=== PATIENT | male | born 1985 | race Caucasian/White ===

== ENCOUNTER → 2020-12-27 | Outpatient (CLI) | payer OTHER | LOC: KOH-I 11:40 | DX: M54.2 Cervicalgia (principal); M54.5 Low back pain; M25.512 Pain in left shoulder | CPT/HCPCS: 71046; 72040; 72070; 72100; 73030 ==

== ENCOUNTER → 2021-05-14 | Outpatient (CLI) | payer OTHER | LOC: KOH-I 05-13 08:30 | DX: S39.92XD Unspecified injury of lower back, subsequent encounter (principal); M50.30 Other cervical disc degeneration, unspecified cervical region; M51.36 Other intervertebral disc degeneration, lumbar region | CPT/HCPCS: 72125; 72131 ==

== ENCOUNTER 2021-06-23 13:23 | Emergency (ER) | payer OTHER ==
[2021-06-23 14:03] LABS: HEMOGLOBIN 13.3 gm/dl (14.0-17.5); RED BLOOD COUNT 4.37 M/UL (4.20-5.50); WHITE BLOOD COUNT 4.6 K/UL (4.5-11.0)
[2021-06-23 14:21] LABS: BUN/CREATININE RATIO 20 (0-10)
[2021-06-23] MEDS ORDERED: CITRATE OF MAG296 ML PO (16:24)
[2021-06-23] MEDS ORDERED: ANUSOL-HC CREAM30 GM PR (16:24)
== END 2021-06-23 15:34 | disposition home or self-care (01) ==
LOC: ER1 13:23
PROVIDERS: Physician Assistant
DX: K59.00 Constipation, unspecified (principal); Z90.49 Acquired absence of other specified parts of digestive tract
CPT/HCPCS: 80053; 81001; 83690; 85025; 99284

== ENCOUNTER 2021-12-27 00:32 | Emergency (ER) | payer OTHER ==
[~2021-12-27 00:32] MED LIST: ANUSOL-HC CREAM30 GM PR; CITRATE OF MAG296 ML PO
[2021-12-27 01:23] LABS: RED BLOOD COUNT 4.71 M/UL (4.20-5.50); WHITE BLOOD COUNT 4.7 K/UL (4.5-11.0)
[2021-12-27 02:10] LABS: BUN/CREATININE RATIO 28 (0-10)
== END 2021-12-27 03:21 | disposition home or self-care (01) ==
LOC: ER1 00:32
PROVIDERS: Physician Assistant
DX: R20.2 Paresthesia of skin (principal); R11.2 Nausea with vomiting, unspecified; Z90.89 Acquired absence of other organs; Z90.49 Acquired absence of other specified parts of digestive tract
CPT/HCPCS: 80053; 84439; 84443; 85025; 99284